=== PATIENT | male | born 1960 | race Caucasian/White ===

== ENCOUNTER 2024-08-22 11:55 | Inpatient (IN) | payer MEDICARE, OTHER ==
[~2024-08-22] VITALS: Ht 175.3 cm; Wt 110.8 kg
[2024-08-22] VITALS (7 sets, daily range): BP systolic 145–216; BP diastolic 72–109
[2024-08-22 13:19] LABS: BASOPHILS ABSOLUTE AUTO 0.06 K/mm3 (0.00-0.23); BASOPHILS PERCENT AUTO 1 % (0-2); EOSINOPHILS ABSOLUTE AUTO 0.08 K/mm3 (0.00-0.68); EOSINOPHILS PERCENT AUTO 1 % (0-6); Hematocrit 49.4 % (37.0-53.0); Hemoglobin 16.9 g/dL (13.5-17.5); IMMATURE GRAN ABSOLUTE AUTO 0.04 K/mm3 (0.00-0.10); IMMATURE GRAN PERCENT AUTO 0 % (0-1); LYMPHOCYTES ABSOLUTE AUTO 1.01 K/mm3 (0.84-5.20); LYMPHOCYTES PERCENT AUTO 10 % (21-46); MONOCYTES ABSOLUTE AUTO 0.79 K/mm3 (0.16-1.47); MONOCYTES PERCENT AUTO 8 % (4-13); Mean Corpuscular HGB 32.3 pg (26.0-34.0); Mean Corpuscular HGB Conc 34.2 g/dL (31.5-36.5); Mean Corpuscular Volume 94 fL (80-100); Mean Platelet Volume 9.7 fL (9.1-12.4); NEUTROPHILS ABSOLUTE AUTO 8.23 K/mm3 (1.96-9.15); NEUTROPHILS PERCENT AUTO 81 % (41-73); Platelet Count 263 K/mm3 (150-400); RDW Coefficient Variation 14.3 % (11.7-14.2); RDW Standard Deviation 49.1 fL (35.1-46.3); Red Blood Cell Count 5.24 M/mm3 (4.30-5.90); White Blood Cell Count 10.21 K/mm3 (4.00-11.30)
[2024-08-22 13:33] LABS: Albumin, Blood 3.4 g/dL (3.4-5.0); Albumin/Globulin Ratio 0.8 (0.8-1.8); Bilirubin, Total 0.9 mg/dL (0.1-1.0); Calcium, Blood 8.7 mg/dL (8.5-10.1); Creatinine, Blood 0.91 mg/dL (0.60-1.20); Globulin, Blood 4.4 g/dL (2.2-4.0); Potassium, Blood 4.1 mmol/L (3.5-5.5); Total Protein, Blood 7.8 g/dL (6.4-8.2)
[2024-08-22] MEDS ORDERED: Furosemide 10 MG/ML 4ML Vial IV ONE (15:50)
[2024-08-22] MEDS ORDERED: Clindamycin 600mg in D5W 50 ML IV ONE (15:50)
[2024-08-22] MEDS ORDERED: NiCARdipine HCL 50 MG in NS 250 ML IV SCH (19:15)
[2024-08-22] MEDS ORDERED: FLU VACC TS2024-25(6MOS UP)/PF 45 MCG/0.5 ML SYRINGE IM SCH (19:25)
[2024-08-22] MEDS ORDERED: Ondansetron HCl 2 MG / ML 2ML Vial IV PRN (19:30)
[2024-08-22 19:47] LABS: Source, Urine Clean Catch
[2024-08-22 19:51] LABS: Appearance, Urine Clear (Clear); Bilirubin, Urine Neg (Neg); Blood, Urine Neg (Neg); Glucose Qualitative, Urine Neg (Neg); Ketones, Urine Neg (Neg); Leukocyte Esterase, Urine Neg (Neg); Nitrite, Urine Neg (Neg); Protein, Urine Neg (Neg); Specific Gravity, Urine 1.005 (1.003-1.022); Urobilinogen, Urine NORM (Normal)
[2024-08-22 20:00] LABS: Color, Urine Pale Yellow (P-Yellow)
[2024-08-22] MEDS ORDERED: HydrALAZINE HCl 20 MG / ML 1ML Vial IV PRN (20:00)
[2024-08-22] MEDS ORDERED: Enoxaparin 40 MG/0.4 ML SYR SC SCH (20:00)
[2024-08-22] MEDS ORDERED: HydrALAZINE HCl 20 MG / ML 1ML Vial IV ONE (20:00)
[2024-08-22 20:02] LABS: U Amphetamine Screen Not Detected; U Barbituate Screen Not Detected; U Benzodiazapine Screen Not Detected; U Buprenorphine Screen Not Detected; U Cannabinoids Screen DETECTED; U Cocaine Screen Not Detected; U Methadone Screen Not Detected; U Methamphetamine Screen Not Detected; U Opiates Screen Not Detected; U Oxycodone Screen Not Detected; U Phencyclidine Screen Not Detected
[2024-08-22 20:41] LABS: Free Thyroxine 1.29 ng/dL (0.70-1.60)
[2024-08-22 20:42] LABS: Thyroid Stimulating Hormone 5.43 uIU/mL (0.360-4.800)
[2024-08-22] MEDS ORDERED: Lisinopril 20 MG Tab PO SCH (21:00)
--- NOTE | 2024-08-22 22:57 | NUR ---
ASSUMPTION OF CARE: ASSUMED CARE OF PT AT 2049, UPON PTS ARRIVAL TO ICU. PT TRANSPORTED VIA GURNEY BY ED RN. PT ALERT & ORIENTED X4. ABLE TO MAKE NEEDS KNOWN, ANSWERS ASSESSMENT QUESTIONS APPROPRIATELY. HR 90S-100S. PT DENIED CHEST PAIN OR SOB. SBP 200S. NICARDIPINE DRIP RUNNING AT 5MG/HR. LUNGS C/O. PT ON RA, SATS 94%.ABDOMEN DISTENDED,SOFT, NONTENDER TO PALPATION. PER ED RN, PT USING URINAL APPROPRIATELY IN ED. PER PT, LAST BM THIS MORNING. HE HAD ABOUT 1300ML OUTPUT WHILE THERE. SKIN WARM,BLE NOTED TO BE REDDENED, WEEPING, AND SWOLLEN. RLE OBSERVED TO HAVE SOME SMALL OPEN SORES,ABD AND KERLIX APPLIED TO AREA. PICTURES OBTAINED. PT HAS 18G IV IN LAC AND 18G IV RH. THIS RN TO CONTINUE TO MONITOR.
[2024-08-23] VITALS (35 sets, daily range): BP systolic 130–185; BP diastolic 63–124
[2024-08-23] MEDS ORDERED: Clindamycin 900mg in D5W 50ML 50 ML IV SCH
[2024-08-23 03:59] LABS: BASOPHILS ABSOLUTE AUTO 0.05 K/mm3 (0.00-0.23); BASOPHILS PERCENT AUTO 1 % (0-2); EOSINOPHILS ABSOLUTE AUTO 0.19 K/mm3 (0.00-0.68); EOSINOPHILS PERCENT AUTO 2 % (0-6); Hematocrit 48.7 % (37.0-53.0); Hemoglobin 16.9 g/dL (13.5-17.5); IMMATURE GRAN ABSOLUTE AUTO 0.02 K/mm3 (0.00-0.10); IMMATURE GRAN PERCENT AUTO 0 % (0-1); LYMPHOCYTES ABSOLUTE AUTO 0.85 K/mm3 (0.84-5.20); LYMPHOCYTES PERCENT AUTO 10 % (21-46); MONOCYTES ABSOLUTE AUTO 0.91 K/mm3 (0.16-1.47); MONOCYTES PERCENT AUTO 10 % (4-13); Mean Corpuscular HGB 32.8 pg (26.0-34.0); Mean Corpuscular HGB Conc 34.7 g/dL (31.5-36.5); Mean Corpuscular Volume 95 fL (80-100); NEUTROPHILS ABSOLUTE AUTO 6.93 K/mm3 (1.96-9.15); NEUTROPHILS PERCENT AUTO 77 % (41-73); Platelet Count 228 K/mm3 (150-400); RDW Coefficient Variation 14.1 % (11.7-14.2); RDW Standard Deviation 49.5 fL (35.1-46.3); Red Blood Cell Count 5.15 M/mm3 (4.30-5.90); White Blood Cell Count 8.95 K/mm3 (4.00-11.30)
[2024-08-23 04:41] LABS: Albumin/Globulin Ratio 0.7 (0.8-1.8); Bilirubin, Total 1.3 mg/dL (0.1-1.0); Bun/Creatinine Ratio 11.9 (12.0-20.0); Calcium, Blood 8.6 mg/dL (8.5-10.1); Creatinine, Blood 0.84 mg/dL (0.60-1.20); Globulin, Blood 4.1 g/dL (2.2-4.0); Potassium, Blood 3.6 mmol/L (3.5-5.5); Total Protein, Blood 7.1 g/dL (6.4-8.2)
--- NOTE | 2024-08-23 05:32 | NUR ---
SHIFT SUMMARY: PT SLEEPING COMFORTABLY. EASILY AROUSES TO VOICE. PT REMAINS ALERT & ORIENTED X4. AGREEABLE W/CARE AND USING CALL LIGHT APPROPRIATELY. HR 90S. SINUS. SBP 140S-160S. NICARDIPINE DRIP STOPPED AROUND 0400 THIS AM. LUNG ROTHMAN CLEAR T/O. PT ON RA. PT USING URINAL INDEPENDENTLY. LAST BM 08/22/24. PTS BILAT LOWER EXTREMITIES ARE REDDENED, SWOLLEN, AND WEEPING. RLE HAS SMALL SUPERFICIAL OPEN SORES. DRESSINGS REMAIN C/D/I. PT HAS 18G IV IN LAC AND 18G IV IN RH. THIS RN TO REPORT TO ONCOMING RN.
[2024-08-23] MEDS ORDERED: AmLODIPine Besylate 5 MG Tab PO SCH ×2 (09:00→14:00)
[2024-08-23] MEDS ORDERED: Furosemide 10 MG/ML 4ML Vial IV SCH (09:00)
[2024-08-23] MEDS ORDERED: HydroCHLOROthiazide 25 mg Tab PO SCH (09:00)
[2024-08-23] MEDS ORDERED: Nicotine 14 MG PATCH TOP SCH (09:00)
[2024-08-23] MEDS ORDERED: CeFAZolin Sodium 2,000 MG in NS 100 ML IV SCH (10:00)
--- NOTE | 2024-08-23 11:39 | NUR ---
REASSESSMENT PT HAS BEEN RESTING IN BED THROUGHOUT THE MORNING, BUT IS NOW IN THE CHAIR FOR LUNCH. HE IS ALERT AND ORIENTED. LUNGS CLEAR, RA. SR. SBP 160S THIS MORNING. PT DENIES ANY HEADACHE OR CHEST PAINS. DR. KNOX GAVE OK FOR PT HAVE CARDIAC DIET. ECHO COMPLETED THIS MORNING. GAUZE DRESSINGS REMAIN ON LEGS. REDNESS HAS NOT SPREAD PAST OUTLINE. PT SAYS HIS LEGS LOOK A LITTLE IMPROVED FROM YESTERDAY. PT'S FRIEND VISITED THIS MORNING.
--- NOTE | 2024-08-23 12:17 | NUR ---
Pt. is sitting up in bed and welcomes my visit. Pt. is pleasant. Facilitated a short life review. Pt. displayed evidence of being aware and enggaged. Briefly considered matters of derrick and belief. Pt. verbalized and expectation that he would be moved out of ICU soon and verbalizeed gratitude for the spiritual care visit.
--- NOTE | 2024-08-23 17:11 | NUR ---
SHIFT SUMMARY PT HAS CONTINUED TO HAVE SBP ABOVE [address] SOTO ADDED AMLODIPINE AND SBP CURRENTLY 172. SPOKE WITH DR. KNOX, AND HE SAID HE WOULD CHANGE THE LISINOPRIL TO BE GIVEN IN THE EVENING, BUT FOR NOW, SBP INT HE 170S WAS OK. PT DENIES HEADACHE OR CHEST PAIN. HE REMAINS ALERT AND ORIENTED, LUNGS CLEAR, SR WITH RATE IN THE 90S. GOT UP TO THE CHAIR FOR LUNCH, BUT NOW BACK TO BED. VOIDING USING THE URINAL. MED WITH TELE STATUS, WAITING FOR BED.
[2024-08-23] MEDS ORDERED: Lisinopril 20 MG Tab PO SCH (19:00)
--- NOTE | 2024-08-23 22:50 | NUR ---
ASSUMED CARE OF PT AT 1900. REPORT RECEIVED AT BEDSIDE. PT PRESENTS IN BED. ALERT AND ORIENTED. PLEASANT AND COOPERATIVE WITH CARE AND ASSESSMENT. PT ON ROOM AIR WHEREAS HE REMAINS > 90 PERCENT STATURATED. DRESSING TO LOWER EXTREMITIES INTACT. NO COMPLAINTS OF PAIN. NO COMPLAINTS OF CHEST PAIN OR PRESSURE. ABLE TO MOVE ABOUT IN BED ON HIS OWN. CALL LIGHT WITHIN REACH. WILL REVIEW CHART AND PLAN OF CARE FOR THIS PT.
[2024-08-24] VITALS: BP 160/64
[2024-08-24 03:33] LABS: BASOPHILS ABSOLUTE AUTO 0.04 K/mm3 (0.00-0.23); BASOPHILS PERCENT AUTO 1 % (0-2); EOSINOPHILS ABSOLUTE AUTO 0.24 K/mm3 (0.00-0.68); EOSINOPHILS PERCENT AUTO 3 % (0-6); Hematocrit 44.7 % (37.0-53.0); Hemoglobin 15.7 g/dL (13.5-17.5); IMMATURE GRAN ABSOLUTE AUTO 0.02 K/mm3 (0.00-0.10); IMMATURE GRAN PERCENT AUTO 0 % (0-1); LYMPHOCYTES ABSOLUTE AUTO 1.24 K/mm3 (0.84-5.20); LYMPHOCYTES PERCENT AUTO 15 % (21-46); MONOCYTES ABSOLUTE AUTO 0.84 K/mm3 (0.16-1.47); MONOCYTES PERCENT AUTO 10 % (4-13); Mean Corpuscular HGB 33.3 pg (26.0-34.0); Mean Corpuscular HGB Conc 35.1 g/dL (31.5-36.5); Mean Corpuscular Volume 95 fL (80-100); Mean Platelet Volume 9.3 fL (9.1-12.4); NEUTROPHILS ABSOLUTE AUTO 6.02 K/mm3 (1.96-9.15); NEUTROPHILS PERCENT AUTO 72 % (41-73); Platelet Count 224 K/mm3 (150-400); RDW Coefficient Variation 14.3 % (11.7-14.2); RDW Standard Deviation 49.5 fL (35.1-46.3); Red Blood Cell Count 4.71 M/mm3 (4.30-5.90)
[2024-08-24 03:48] LABS: Bun/Creatinine Ratio 20.4 (12.0-20.0); Calcium, Blood 8.6 mg/dL (8.5-10.1); Creatinine, Blood 0.93 mg/dL (0.60-1.20); Potassium, Blood 3.4 mmol/L (3.5-5.5)
[2024-08-24 04:00] VITALS: BP 180/92
--- NOTE | 2024-08-24 06:15 | NUR ---
PT HAS BEEN ABLE TO REST THIS NIGHT. TURNS HIMSELF IN BED INDEPENDENTLY. NO COMPLAINTS OF PAIN OR DYSPNEA. OF NOTE: THIS AM PT BEGINS TO HAVE DESATURATIONS WHILE ASLEEP INTO LOW 80 PERCENTS. DEMONSTRATES A SLEEP APNEIC TYPE BREATHING PATTERN. PLACED 2 L/M O2 PER NASAL CANNULA. WILL CONTINUE TO MONITOR PT, AND WILL REPORT OFF TO ONCOMING RN.
[2024-08-24] MEDS ORDERED: Potassium Chloride 20 MEQ TabCR PO SCH (07:00)
[2024-08-24] MEDS ORDERED: HydroCHLOROthiazide 25 mg Tab PO SCH (07:00)
[2024-08-24 07:39] VITALS: BP 159/104
[2024-08-24] MEDS ORDERED: Labetalol HCL 100 MG TAB PO SCH (09:00)
[2024-08-24 09:27] VITALS: BP 160/128
[2024-08-24] MEDS ORDERED: AMLO5 PO (12:26)
[2024-08-24] MEDS ORDERED: LABE100 PO (12:27)
[2024-08-24] MEDS ORDERED: HYDCHL25 PO (12:27)
[2024-08-24] MEDS ORDERED: LISI20 PO (12:28)
[2024-08-24] MEDS ORDERED: VISBIOME 112.51 EACH PO (12:29)
[2024-08-24] MEDS ORDERED: POTCHL20ER PO (12:29)
[2024-08-24] MEDS ORDERED: CEPH500 PO (12:31)
[2024-08-24 12:41] VITALS: BP 159/85
--- NOTE | 2024-08-24 14:04 | NUR ---
SUMMARY PT A/O X4. INDEP IN ROOM. HYPERTENSION IMPROVING WITH NEW MEDS. DRESSINGS TO BLE'S CHANGED. PT BEING DISCHARGED. SET UP WITH FOLLOW UP AT [facility] FOR DRESSING CHANGES. DISCHARGE INSTRUCTIONS GONE OVER WITH PT. NO SIGN OF DISTRESS PT LEAVES THE UNIT. ASSISTED OUT BY MALIK WITH W/C.
== END 2024-08-24 14:20 | disposition home or self-care (01) | DRG 603 ==
LOC: ER 11:55 → ICUE 19:40 → ERHOLD 19:40 → ICUE 20:40
PROVIDERS: Physician Assistant; ADMIT Internal Medicine
DX: L03.116 Cellulitis of left lower limb (principal); I16.1 Hypertensive emergency; I10 Essential (primary) hypertension; I87.8 Other specified disorders of veins; E03.8 Other specified hypothyroidism; L60.2 Onychogryphosis; B35.1 Tinea unguium; I16.0 Hypertensive urgency; G47.33 Obstructive sleep apnea (adult) (pediatric); E87.6 Hypokalemia; F17.210 Nicotine dependence, cigarettes, uncomplicated
CPT/HCPCS: 36415; 71046; 80048; 80053; 81003; 83880; 84439; 84443; 84484; 85025; 93005; 93010; 93306; 93970; 96365; 96366; 96367; 96372; 96375; 96376; 99285-25; A9270; G0378; J0360; J0690; J1650; J1940; J7050

== ENCOUNTER 2024-08-28 02:16 | Day surgery (SDC) | payer MEDICARE, OTHER ==
[~2024-08-28 02:16] MED LIST: AMLO5 PO; CEPH500 PO; HYDCHL25 PO; LABE100 PO; LISI20 PO; POTCHL20ER PO; VISBIOME 112.51 EACH PO
[2024-08-28] MEDS ORDERED: Lidocaine HCl 4% Cream 5 GM ONE (13:11)
== END 2024-08-28 22:48 | disposition home or self-care (01) ==
LOC: WOUND 02:16
DX: L97.812 Non-pressure chronic ulcer of other part of right lower leg with fat layer exposed (principal); L97.822 Non-pressure chronic ulcer of other part of left lower leg with fat layer exposed; I87.2 Venous insufficiency (chronic) (peripheral); I73.9 Peripheral vascular disease, unspecified; F17.210 Nicotine dependence, cigarettes, uncomplicated
CPT/HCPCS: A9270; G0463

== ENCOUNTER 2024-09-02 07:08 | Emergency (ER) | payer MEDICARE, OTHER ==
[~2024-09-02] VITALS: Ht 177.8 cm; Wt 113.4 kg
[2024-09-02 07:53] LABS: BASOPHILS ABSOLUTE AUTO 0.05 K/mm3 (0.00-0.23); BASOPHILS PERCENT AUTO 1 % (0-2); EOSINOPHILS ABSOLUTE AUTO 0.19 K/mm3 (0.00-0.68); EOSINOPHILS PERCENT AUTO 2 % (0-6); Hematocrit 44.6 % (37.0-53.0); Hemoglobin 15.6 g/dL (13.5-17.5); IMMATURE GRAN ABSOLUTE AUTO 0.02 K/mm3 (0.00-0.10); IMMATURE GRAN PERCENT AUTO 0 % (0-1); LYMPHOCYTES ABSOLUTE AUTO 0.96 K/mm3 (0.84-5.20); LYMPHOCYTES PERCENT AUTO 10 % (21-46); MONOCYTES ABSOLUTE AUTO 0.82 K/mm3 (0.16-1.47); MONOCYTES PERCENT AUTO 9 % (4-13); Mean Corpuscular HGB 32.6 pg (26.0-34.0); Mean Corpuscular Volume 93 fL (80-100); Mean Platelet Volume 9.4 fL (9.1-12.4); NEUTROPHILS PERCENT AUTO 78 % (41-73); Platelet Count 280 K/mm3 (150-400); RDW Coefficient Variation 13.2 % (11.7-14.2); RDW Standard Deviation 45.6 fL (35.1-46.3); Red Blood Cell Count 4.79 M/mm3 (4.30-5.90); White Blood Cell Count 9.24 K/mm3 (4.00-11.30)
[2024-09-02 08:07] LABS: Bun/Creatinine Ratio 17.5 (12.0-20.0); Calcium, Blood 8.8 mg/dL (8.5-10.1); Creatinine, Blood 0.91 mg/dL (0.60-1.20); Potassium, Blood 4.6 mmol/L (3.5-5.5)
== END 2024-09-02 09:00 | disposition home or self-care (01) ==
LOC: ER 07:08
PROVIDERS: Emergency Medicine
DX: I16.0 Hypertensive urgency (principal); E87.1 Hypo-osmolality and hyponatremia; I10 Essential (primary) hypertension; F17.210 Nicotine dependence, cigarettes, uncomplicated; Z79.2 Long term (current) use of antibiotics; Z79.899 Other long term (current) drug therapy
CPT/HCPCS: 80048; 85025; 99284

== ENCOUNTER 2024-09-04 00:58 | Day surgery (SDC) | payer MEDICARE, OTHER | END 2024-09-04 23:00 | disposition home or self-care (01) | LOC: WOUND 00:58 | DX: L97.822 Non-pressure chronic ulcer of other part of left lower leg with fat layer exposed (principal); L97.812 Non-pressure chronic ulcer of other part of right lower leg with fat layer exposed; I87.2 Venous insufficiency (chronic) (peripheral); I73.9 Peripheral vascular disease, unspecified | CPT/HCPCS: 93922; 93970; G0463 ==

== ENCOUNTER 2024-09-11 01:19 | Day surgery (SDC) | payer MEDICARE, OTHER | END 2024-09-11 23:00 | disposition home or self-care (01) | LOC: WOUND 01:19 | DX: I87.313 Chronic venous hypertension (idiopathic) with ulcer of bilateral lower extremity (principal); L97.822 Non-pressure chronic ulcer of other part of left lower leg with fat layer exposed; L97.812 Non-pressure chronic ulcer of other part of right lower leg with fat layer exposed; I87.2 Venous insufficiency (chronic) (peripheral); I73.9 Peripheral vascular disease, unspecified | CPT/HCPCS: G0463 ==

== ENCOUNTER 2024-09-18 01:40 | Day surgery (SDC) | payer MEDICARE, OTHER | END 2024-09-18 23:00 | disposition home or self-care (01) | LOC: WOUND 01:40 | DX: I87.313 Chronic venous hypertension (idiopathic) with ulcer of bilateral lower extremity (principal); L97.822 Non-pressure chronic ulcer of other part of left lower leg with fat layer exposed; L97.812 Non-pressure chronic ulcer of other part of right lower leg with fat layer exposed; I87.2 Venous insufficiency (chronic) (peripheral); I73.9 Peripheral vascular disease, unspecified | CPT/HCPCS: G0463 ==

== ENCOUNTER 2024-09-25 12:25 | Day surgery (SDC) | payer MEDICARE, OTHER | END 2024-09-25 23:00 | disposition home or self-care (01) | LOC: WOUND 12:25 | DX: I87.313 Chronic venous hypertension (idiopathic) with ulcer of bilateral lower extremity (principal); L97.822 Non-pressure chronic ulcer of other part of left lower leg with fat layer exposed; I87.2 Venous insufficiency (chronic) (peripheral); I73.9 Peripheral vascular disease, unspecified | CPT/HCPCS: G0463 ==